=== PATIENT | female | born 1985 | race Caucasian/White ===

== ENCOUNTER 2016-10-06 11:17 | Inpatient (IN) | payer OTHER ==
[2016-10-06] VITALS (19 sets, daily range): BP systolic 97–123; BP diastolic 61–79
[~2016-10-06] VITALS: Ht 157.5 cm; Wt 74.1 kg
[~2016-10-06 11:17] MED LIST: NORCO 5/3251 TABLET PO; SKELAXIN800 MG PO
[2016-10-06] MEDS ORDERED: VALTREX50 MG/ML PO (12:16)
[2016-10-06] MEDS ORDERED: EXPECTA PRENAT1 EACH PO (12:17)
[2016-10-06 13:35] LABS: EOSINOPHIL (%) 0.1 % (0-5); HEMATOCRIT 41.4 % (36.0-46.0); IMMATURE GRANULOCYTE (%) 0.4 % (0.0-0.7); IMMATURE GRANULOCYTE COUNT 0.1 K/uL; LYMPHOCYTE COUNT 2.1 K/uL (1.0-2.8); MCH 29.6 PG (29.0-34.0); MCHC 33.6 G/DL (30.0-36.0); MCV 88.1 FL (83-99); MEAN PLAT.VOLUME 10.8 uM^3 (9.5-12.4); MONOCYTE (%) 4.3 % (3-12); MONOCYTE COUNT 0.8 K/uL (0-0.8); NEUTROPHIL (%) 83.4 % (45-76); PLATELET COUNT 172 K/uL (156-360); RBC DIS.WIDTH-CV 14.1 % (11.8-14.6); RBC DIS.WIDTH-SD 45.4 % (39-53)
[2016-10-06] MEDS ORDERED: MOTRIN800 MG PO (22:47)
[2016-10-07 00:30] VITALS: BP 105/70
[2016-10-07 04:20] VITALS: BP 98/57
[2016-10-07 07:00] LABS: EOSINOPHIL (%) 0.2 % (0-5); EOSINOPHIL COUNT 0.1 K/uL (0-0.3); HEMATOCRIT 34.9 % (36.0-46.0); IMMATURE GRANULOCYTE (%) 0.5 % (0.0-0.7); IMMATURE GRANULOCYTE COUNT 0.1 K/uL; LYMPHOCYTE COUNT 2.4 K/uL (1.0-2.8); MCH 29.1 PG (29.0-34.0); MCV 88.4 FL (83-99); MEAN PLAT.VOLUME 10.7 uM^3 (9.5-12.4); MONOCYTE COUNT 1.5 K/uL (0-0.8); NEUTROPHIL (%) 80.7 % (45-76); NEUTROPHIL COUNT 16.9 K/uL (1.8-6.4); PLATELET COUNT 137 K/uL (156-360); RBC DIS.WIDTH-CV 14.2 % (11.8-14.6); RBC DIS.WIDTH-SD 45.8 % (39-53); RED BLOOD COUNT 3.95 M/uL (3.80-5.20); WHITE BLOOD COUNT 20.9 K/uL (4.1-10.2)
[2016-10-07 07:24] VITALS: BP 108/67
[2016-10-07 15:18] VITALS: BP 122/72
[2016-10-07 22:42] VITALS: BP 123/71
[2016-10-08 08:12] VITALS: BP 126/65
== END 2016-10-08 14:20 | disposition home or self-care (01) | DRG 774 ==
LOC: LDRP-OP 11:17 → 2WEST 11:18 → LDRP-OP 11-03 11:00
PROVIDERS: Midwife
DX: O70.0 First degree perineal laceration during delivery (principal); O69.81X0 Labor and delivery complicated by cord around neck, without compression, not applicable or unspecified; Z37.0 Single live birth; A60.09 Herpesviral infection of other urogenital tract; Z3A.40 40 weeks gestation of pregnancy; O98.32 Other infections with a predominantly sexual mode of transmission complicating childbirth
CPT/HCPCS: 85025; C1755; C1776; J3010; J7120